=== PATIENT | male | born 1985 | race Caucasian/White ===

== ENCOUNTER 2023-01-01 14:00 | Outpatient (CLI) | payer BC, SELFPAY | END 2023-01-01 14:01 | disposition home or self-care (01) | LOC: SLEEP 01-02 09:13 | PROVIDERS: Family Provider Family Medicine; Visit Provider Nurse Practitioner Family | DX: G47.33 Obstructive sleep apnea (adult) (pediatric) (principal) | CPT/HCPCS: G0399 ==